=== PATIENT | female | born 1995 | race Hispanic/Latino ===

== ENCOUNTER → 2019-03-30 | Day surgery (SDC) | payer OTHER ==
[~2019-03-30] MED LIST: ACETAMINOPHEN 1000 MG/100 ML IV ONE; CEFAZOLIN SOD 1 GM/NS 50ML 50 ML IV ONE; DEXAMETHASONE SOD PHOS INJ 4 MG/ML VIAL ONE; FENTANYL CITRATE/PF 100MCG/2 ML INJ ONE; LIDOCAINE HCL 2% LOCAL INJ 5 ML SDV VIAL INJ ONE; METOCLOPRAMIDE HCL 10 MG/2ML VIAL ONE; MIDAZOLAM HCL 2 MG/2 ML VIAL ONE; ONDANSETRON HCL INJ 2MG/ML 2ML 2 MG/ML VIAL ONE; PROPOFOL IV EMULSION 10 MG/ML 20 ML VIAL ONE; SEVOFLURANE INHAL SOLN 250 ML PEN BTL ONE
[2019-03-30 10:45] VITALS: BP 112/68
--- NOTE | 2019-03-30 14:22 | Operative Report ---
DATE OF PROCEDURE: 03/30/2019 SURGEON: Guy Ortega MD [employer] SUPERVISOR: Hilario Bai PA-C. PREOPERATIVE DIAGNOSIS: Patellofemoral syndrome, right knee. POSTOPERATIVE DIAGNOSIS: Patellofemoral syndrome, right knee. PROCEDURE: Right knee arthroscopy, lateral retinacular release. INDICATIONS: The patient is a 23-year-old young lady, who has a two-year history of anterior right knee pain. She has failed extensive conservative management. She would like to proceed with more aggressive intervention. The risks and benefits of arthroscopy with lateral retinacular release were explained. The recovery was discussed. She stated she understood and wished to proceed. PROCEDURE IN DETAIL: The patient was brought to the operating room and placed under general anesthetic. Her right lower extremity was prepped and draped in a sterile manner. A preoperative time-out was performed. The extremity was exsanguinated and a proximal tourniquet was inflated to 300 mmHg. Standard arthroscopy portals were established. The knee was systematically inspected and photographed. There was some small fissuring of the undersurface of the patella. The medial and lateral gutters, medial compartment, lateral compartment, and cruciate ligaments were all inspected and probed. There were no abnormalities. The scope was then placed into the superior medial portal. There was indeed noted to be lateral tilt and tracking of the patella in the patellofemoral groove. The lateral retinaculum was then released with an underwater electrocautery instrument. Complete release of the lateral retinaculum was noted. The tourniquet was then deflated. The inflow pressure of the arthroscopy was then carefully lowered. All minor bleeding was electrocauterized. The arthroscopic instruments were then removed. The portal incisions were closed with nylon stitches. A sterile bandage with a lateral bolster was applied. Estimated blood loss was less than 10 mL. At the end of the procedure, all needle and sponge counts were correct. Guy Ortega MD DR/LAURENT /[id number]
== END | disposition home or self-care (01) ==
LOC: OR 06:17
PROVIDERS: ATTEND Specialist
DX: M22.2X1 Patellofemoral disorders, right knee (principal); M22.41 Chondromalacia patellae, right knee
CPT/HCPCS: 81025; J0690; J1100; J2001; J2250; J2405; J2765

== ENCOUNTER 2019-05-12 15:52 | Outpatient (RCR) | payer OTHER | END 2019-05-16 | LOC: PT 15:52 | PROVIDERS: ATTEND Specialist | DX: M22.2X1 Patellofemoral disorders, right knee (principal); M22.41 Chondromalacia patellae, right knee; M25.561 Pain in right knee; M25.661 Stiffness of right knee, not elsewhere classified; M62.81 Muscle weakness (generalized); R26.2 Difficulty in walking, not elsewhere classified ==

== ENCOUNTER → 2019-06-16 | Outpatient (RCR) | payer OTHER | LOC: PT 05-19 15:55 | PROVIDERS: ATTEND Specialist | DX: M22.2X1 Patellofemoral disorders, right knee (principal); M22.41 Chondromalacia patellae, right knee ==